=== PATIENT | female | born 1990 | race Two or more races ===

== ENCOUNTER 2018-03-11 21:30 | Emergency (ER) | payer MEDICAID ==
[2018-03-11 22:09] LABS: URINE SOURCE CLEAN C
[2018-03-11 22:11] LABS: URINE BILIRUBIN NEGATIVE (NEGATIVE); URINE BLOOD MODERATE (NEGATIVE); URINE GLUCOSE (UA) NEGATIVE (NEGATIVE); URINE KETONE NEGATIVE (NEGATIVE); URINE LEUKOCYTE ESTERASE NEGATIVE (NEGATIVE); URINE MICROSCOPIC INDICATED? YES; URINE NITRATE NEGATIVE (NEGATIVE); URINE PROTEIN NEGATIVE (NEGATIVE); URINE UROBILINOGEN 0.2 E.U./dL (0.2 - 1.0)
[2018-03-11 22:13] LABS: % BASOPHILS 0.4 % (0.0-2.0); % EOSINOPHILS 5.8 % (0.0-5.0); % LYMPHOCYTES 21.9 % (20.0-50.0); % MONOCYTES 1.9 % (2.0-10.0); EOSINOPHILE ABSOLUTE 0.7 Th/cmm (0.1-0.4); HEMATOCRIT 40.5 % (41.0-60); HEMOGLOBIN 13.3 gm/dL (12-16); LYMPHOCYTE ABSOLUTE 2.7 Th/cmm (1.5-3.0); MEAN CELL VOLUME 85.7 fl (81-100); MEAN CORPUSCULAR HEMOGLOBIN 28.1 pg (27.0-31.0); MEAN CORPUSCULAR HGB CONC 32.8 pg (28.0-36.0); MEAN PLATELET VOLUME 7.1 fl; MONOCYTE ABSOLUTE 0.2 Th/cmm (0.3-1.0); NEUTROPHILE ABSOLUTE 8.8 Th/cmm (1.8-8.0); PLATELET COUNT 482 Th/cmm (150-400); RED BLOOD COUNT 4.73 Mil/cmm (3.80-5.10); RED CELL DISTRIBUTION WIDTH 13.8 % (11.5-20.0); WHITE BLOOD COUNT 12.4 Th/cmm (4.8-10.8)
[2018-03-11 22:25] LABS: ALB/GLOB RATIO 1.5 (1.0-1.8); ALBUMIN 4.2 gm/dL (3.7-5.3); ALKALINE PHOSPHATASE 68 U/L (34-104); ANION GAP 11.4 (7.0-16.0); BILIRUBIN,TOTAL 0.3 mg/dL (0.3-1.0); BUN - UREA NITROGEN 9 mg/dL (7-25); CALCIUM SERUM 9.5 mg/dL (8.6-10.3); CARBON DIOXIDE 26.3 mEq/L (21.0-31.0); CHLORIDE 104 mEq/L (98-107); CREATININE - SERUM 0.6 mg/dL (0.6-1.2); GFR AFRICAN-AMERICAN > 60.0 ml/min (>90); GFR NON AFRICAN-AMERICAN > 60.0 ml/min; GLUCOSE 126 mg/dL (70-105); POTASSIUM SERUM 3.7 mEq/L (3.5-5.1); SGOT 13 U/L (13-39); SGPT/ALT 13 U/L (7-52); SODIUM SERUM 138 mEq/L (136-145)
--- NOTE | 2018-03-11 22:33 | ED Physician Chart ---
ED Chief Complaint/HPI - Patient Information Date Seen:: 03/11/18 Time Seen:: 21:45 Chief Complaint:: abdominal pain Allergies:: Allergies Allergy/AdvReac Type Severity Reaction Status Date / Time Penicillins [PCN] Allergy Verified 03/11/18 22:03 Vitals:: Vital Signs - 8 hr 03/11/18 21:40 Temp 98.9 F HR 80 RR 18 BP 123/76 O2 Sat % 100 Historian:: Patient Review:: Nurse's Note Reviewed, Old Chart Reviewed ED Review of Systems - Review of Systems General/Constitutional: No fever, No chills, No weight loss, No weakness, No diaphoresis, No edema, No loss of appetite Skin: No skin lesions, No rash, No bruising Head: No headache, No light-headedness Eyes: No loss of vision, No pain, No diplopia ENT: No earache, No nasal drainage, No sore throat, No tinnitus Neck: No neck pain, No swelling, No thyromegaly, No stiffness, No mass noted Cardio Vascular: No chest pain, No palpitations, No PND, No orthopnea, No edema Pulmonary: No SOB, No cough, No sputum, No wheezing GI: Nausea, Vomiting, No diarrhea, Pain, No melena, No hematochezia, No constipation, No hematemesis G/U: No dysuria, No frequency, No hematuria Musculoskeletal: No bone or joint pain, No back pain, No muscle pain Endocrine: No polyuria, No polydipsia Psychiatric: No prior psych history, No depression, No anxiety, No suicidal ideation Hematopoietic: No bruising, No lymphadenopathy Allergic/Immuno: No urticaria, No angioedema Neurological: No syncope, No focal symptoms, No weakness, No paresthesia, No headache, No seizure, No dizziness, No confusion, No vertigo ED Past Medical History - Past Medical History Obtainable: Yes Past Medical History: No significant medical hx Family History: None Social History: Non Smoker, No Alcohol, No Drug Use Surgical History: (two c-sections) Psychiatricy History: None Medication: Reviewed Family Medical History - Family Member Mother History Unknown: Yes Hx Family Diabetes: Yes ED Physical Exam - Physical Examination General/Constitutional: Awake, Well-developed, well-nourished, Alert, No distress, GCS 15, Non-toxic appearing, Ambulatory Head: Atraumatic Eyes: Lids, conjuctiva normal, PERRL, EOMI Skin: Nl inspection, No rash, No skin lesions, No ecchymosis, Well hydrated, No lymphadenopathy ENMT: External ears, nose nl, Nasal exam nl, Lips, teeth, gums nl Neck: Nontender, Full ROM w/o pain, No JVD, No nuchal rigidity, No bruit, No mass, No stridor Respiratory: Nl effort/Exclusion, Clear to Auscultation, No Wheeze/Rhonchi/Rales Cardio Vascular: RRR, No murmur, gallop, rubs, NL S1 S2 GI: No tenderness/rebounding/guarding (minimal tenderness of the lower abdomen) , No organomegaly, No hernia, Normal BS's, Nondistended, No mass/bruits, No McBurney tenderness : No CVA tenderness Extremities: No tenderness or effusion, Full ROM, normal strength in all extremities, No edema, Normal digits & nails Neuro/Psych: Alert/oriented, DTR's symmetric, Normal sensory exam, Normal motor strength, Judgement/insight normal, Mood normal, Normal gait, No focal deficits Misc: Normal back, No paraspinal tenderness ED Labs/Radiology/EKG Results - Lab Results Results: Laboratory Tests 03/11/18 21:42 POC Ur Test Negative Abnormal Lab Results 03/11/18 03/11/18 03/11/18 21:42 22:04 22:04 WBC 12.4 H RBC 4.73 Hgb 13.3 Hct 40.5 L MCV 85.7 MCH 28.1 MCHC Differential 32.8 RDW 13.8 Plt Count 482 H MPV 7.1 Neutrophils % 70.0 Lymphocytes % 21.9 Monocytes % 1.9 L Eosinophils % 5.8 H Basophils % 0.4 Sodium 138 Potassium 3.7 Chloride 104 Carbon Dioxide 26.3 Anion Gap 11.4 BUN 9 Creatinine 0.6 Est GFR ( Amer) > 60.0 Est GFR (Non-Af Amer) > 60.0 BUN/Creatinine Ratio 15.0 Glucose 126 H Calcium 9.5 Total Bilirubin 0.3 AST 13 ALT 13 Alkaline Phosphatase 68 Total Protein 7.0 Albumin 4.2 Globulin 2.8 Albumin/Globulin Ratio 1.5 Urine Source Urine Color Urine Clarity Urine pH Ur Specific Douglas Urine Protein Urine Glucose (UA) Urine Ketones Urine Blood Urine Nitrate Urine Bilirubin Urine Urobilinogen Ur Leukocyte Esterase Urine RBC Urine WBC Ur Epithelial Cells Urine Bacteria POC Ur Test Negative 03/11/18 22:09 WBC RBC Hgb Hct MCV MCH MCHC Differential RDW Plt Count MPV Neutrophils % Lymphocytes % Monocytes % Eosinophils % Basophils % Sodium Potassium Chloride Carbon Dioxide Anion Gap BUN Creatinine Est GFR ( Amer) Est GFR (Non-Af Amer) BUN/Creatinine Ratio Glucose Calcium Total Bilirubin AST ALT Alkaline Phosphatase Total Protein Albumin Globulin Albumin/Globulin Ratio Urine Source CLEAN C Urine Color YELLOW Urine Clarity CLEAR Urine pH 6.0 Ur Specific Douglas 1.025 Urine Protein NEGATIVE Urine Glucose (UA) NEGATIVE Urine Ketones NEGATIVE Urine Blood MODERATE H Urine Nitrate NEGATIVE Urine Bilirubin NEGATIVE Urine Urobilinogen 0.2 Ur Leukocyte Esterase NEGATIVE Urine RBC 2-5 Urine WBC 0-2 Ur Epithelial Cells FEW Urine Bacteria FEW POC Ur Test - Radiology Results Results: ct scan of the abdomen and pelvis = nad ED Assessment - Assessment General Assessment: abdominal pain hematuria ED Septic Shock - . Is Septic Shock (SBP<90, OR Lactate>4 mmol\L) present?: No - <6hrs of presentation: Vital Signs: Vital Signs - 8 hr 03/11/18 21:40 Temp 98.9 F HR 80 RR 18 BP 123/76 O2 Sat % 100 ED Reassessment (Disposition) - Diagnosis Diagnosis:: gastroenteritis hematuria - Aftercare/Follow up Instructions Aftercare/Follow-Up Instructions:: Counseled pt regarding lab results/diagnosis & need follow up, Refer to Discharge Instructions, Counseled pt & family regarding lab results/diagnosis & need follow up - Patient Disposition Discharge/Transfer:: Home Condition at Disposition:: Improved
[2018-03-11 22:45] LABS: URINE CLARITY CLEAR (CLEAR); URINE COLOR YELLOW
[2018-03-11] MEDS ORDERED: Sodium Chloride 0.45% 1,000 ML IV ONE (22:45)
[2018-03-11 22:52] LABS: URINE BACTERIA FEW /hpf (NONE SEEN); URINE EPITHELIAL CELLS FEW /lpf (FEW); URINE WBC 0-2 /hpf (0-5)
[2018-03-11] MEDS ORDERED: Azithromycin 500 MG in Sodium Chloride 0.9% 250 ML IV ONE (22:57)
[2018-03-11] MEDS ORDERED: IOHEXOL 300mgI/mL 100 ML VIAL ONE ×2 (23:08→23:15)
--- NOTE | 2018-03-12 10:03 | Diagnostic Imaging Report ---
CT abdomen and pelvis with intravenous contrast Indication: Abdominal pain, vomiting Comparison: None, Technique: Axial images were obtained from the lung bases to the bilateral proximal femurs with IV contrast. Coronal reconstructions were made. total DLP: [id number], [id number] FINDINGS: Hypoventilatory atelectatic changes of the lung bases are noted. No evidence of focal hepatic, splenic, or pancreatic lesions. Small hiatal hernia is noted. No focal adrenal lesions. No evidence of hydronephrosis or focal renal lesions. Liquid stool is seen. No evidence of free air or free fluid. No appendicitis. The osseous structures demonstrate no acute abnormalities. IMPRESSION: No evidence of bowel obstruction Liquid stool which may be due to underlying inflammatory process/enteritis No evidence of free fluid.
== END 2018-03-12 01:00 | disposition home or self-care (01) ==
LOC: ER 21:30
DX: K52.9 Noninfective gastroenteritis and colitis, unspecified (principal); R31.9 Hematuria, unspecified; Z98.890 Other specified postprocedural states; Z88.0 Allergy status to penicillin
CPT/HCPCS: 99285; 96365; 74177; 36415; 84443; 85025; 87086; 81001; 81025; 80053; J0696; J0456; Q9967

== ENCOUNTER 2018-08-02 15:13 | Emergency (ER) | payer MEDICAID ==
--- NOTE | 2018-08-10 10:41 | ER Physician Documentation ---
DATE OF SERVICE: 08/02/2018 HISTORY OF PRESENT ILLNESS: This patient presents to the Emergency Room with cough, fever and congestion for 3 days. The patient denies trauma, loss of consciousness, altered level of consciousness, headaches, sore throat, neck pain, chest pain, shortness of breath, abdominal pain, anorexia, nausea, vomiting, diarrhea or constipation. The patient is eating and urinating well. The patient has urinated about an hour prior to admission. PAST MEDICAL HISTORY: None. MEDICATIONS: None. ALLERGIES: PENICILLIN. FAMILY HISTORY: Not known. SOCIAL HISTORY: The patient denies smoking, alcohol or drug use. REVIEW OF SYSTEMS: Otherwise, noncontributory. PHYSICAL EXAMINATION: GENERAL: The patient to be in no acute distress, afebrile. VITAL SIGNS: Stable. HEENT: Negative. There was positive nasal congestion. NECK: Supple. No cervical tenderness. No meningeal signs. CARDIOVASCULAR: Regular rate and rhythm. LUNGS: Clear with good breath sounds bilaterally. ABDOMEN: Soft, nontender, normoactive bowel sounds. No pulsatile masses. EXTREMITIES: No edema, clubbing or cyanosis. NEUROLOGIC: Shows no focal signs. SKIN: Shows good turgor with moist mucous membranes. MEDICAL DECISION MAKING: The patient improved in the Emergency Room course and was asymptomatic and comfortable upon discharge. The patient thus was discharged with a prescription for azithromycin, otherwise known as Z-KIRAN. The patient is to take 2 tablets the first day, then one tablet once a day for the next 4 days. A total of 6 pills were prescribed, one Z-KIRAN. Tylenol 500 mg 4 times a day p.r.n. fever. Cool mist vaporizer for the congestion. The patient is to return to the emergency room as needed if existing exception should reoccur and/or get worse and/or any new other symptoms should occur. Aftercare instructions have been given for all diagnosis. The patient is to have followup care with primary physician in one day or as needed. Refer to the field map technician as soon as possible. Otherwise, follow up care with primary physician in one day or as needed DIAGNOSES: Bronchitis, cough, congestion, sinusitis, fever and upper respiratory infection. [facility]# [id number]
== END 2018-08-02 16:26 | disposition home or self-care (01) ==
LOC: ER 15:13
DX: J40 Bronchitis, not specified as acute or chronic (principal); J32.9 Chronic sinusitis, unspecified; J06.9 Acute upper respiratory infection, unspecified; Z88.0 Allergy status to penicillin
CPT/HCPCS: Z7502